=== PATIENT | female | born 1930 | race Caucasian/White ===

== ENCOUNTER 2017-07-28 10:04 | Inpatient (IN) | payer OTHER ==
[2017-07-28] MEDS: SOD CHLORIDE 0.9% 1,000 ML IV ×2 (10:35→15:33)
[2017-07-28 10:50] LABS: ADD MAN DIFF? NO
[2017-07-28 10:59] LABS: WHITE BLOOD COUNT 8.4 10^3/ul (4.8-10.8)
[2017-07-28 10:59] LABS: BASOPHILS % 0.4 % (0.0-2.0); EOSINOPHILS # 0.3 10^3/ul (0.0-0.5); EOSINOPHILS % 3.2 % (0.0-7.0); HEMATOCRIT 35.8 % (37.0-47.0); HEMOGLOBIN 11.1 g/dl (12.0-16.0); LYMPHOCYTES # 2.9 10^3/ul (0.8-2.9); LYMPHOCYTES % 34.7 % (15.0-51.0); MEAN CORPUSCULAR HEMOGLOBIN 29.3 pg (29.0-33.0); MEAN CORPUSCULAR VOLUME 94.5 fl (82.0-101.0); MEAN PLATELET VOLUME 11.4 fl (7.4-10.4); MONOCYTE # 0.7 10^3/ul (0.3-0.9); NEUTROPHIL # 4.5 10^3/ul (1.6-7.5); NEUTROPHILS % 53.3 % (39.0-77.0); PLATELET COUNT 285 10^3/UL (140-415); RED BLOOD COUNT 3.79 10^6/ul (4.20-5.40); RED CELL DISTRIBUTION WIDTH 14.7 % (11.5-14.5)
[2017-07-28 11:09] LABS: ALANINE AMINOTRANSFERASE 77 IU/L (13-69); ALBUMIN 4.4 g/dl (3.3-4.9); ALBUMIN/GLOBULIN RATIO 1.18; ALKALINE PHOSPHATASE 150 IU/L (42-121); ANION GAP 18 (8-16); ASPARTATE AMINO TRANSFERASE 84 IU/L (15-46); BILIRUBIN,INDIRECT 0.3 mg/dl (0-1.1); BILIRUBIN,TOTAL 0.3 mg/dl (0.2-1.3); BLOOD UREA NITROGEN 38 mg/dl (7-20); CALCIUM 9.3 mg/dl (8.4-10.2); CARBON DIOXIDE 25 mmol/L (21-31); CHLORIDE 101 mmol/L (97-110); CREATININE 1.21 mg/dl (0.44-1.00); GLUCOSE 172 mg/dl (70-220); LIPASE 107 U/L (23-300); POTASSIUM 4.1 mmol/L (3.5-5.1); SODIUM 140 mmol/L (135-144); TOTAL PROTEIN 8.1 g/dl (6.1-8.1)
[2017-07-28 11:11] LABS: INR 1.07; PT RATIO 1.1
[2017-07-28 11:20] LABS: TROPONIN-I 0.017 ng/ml (0.00-0.12)
[2017-07-28] MEDS ORDERED: DOCUSATE SODIUM 100 MG CAP PO (15:00)
[2017-07-28] MEDS ORDERED: morphine 2 MG INJ IV (15:00)
[2017-07-28] MEDS ORDERED: MAGNESIUM HYDROXIDE 30ML CUP PO (15:00)
[2017-07-28] MEDS ORDERED: ACETAMINOPHEN 650 MG SUPP PR (15:00)
[2017-07-28] MEDS ORDERED: HYDROCODONE/APAP (5/325) TAB PO (15:00)
[2017-07-28] MEDS ORDERED: BISACODYL 10 MG SUPP PR (15:00)
[2017-07-28] MEDS ORDERED: NACL 0.9% 3 ML SYG IV (15:00)
[2017-07-28 16:37] LABS: FREE T4 (FREE THYROXINE) 1.82 ng/dl (0.85-1.93)
[2017-07-28 17:09] LABS: FREE T3 4.87 pg/ml (2.77-5.27)
[2017-07-28] MEDS ORDERED: hydrALAzine 20 MG INJ (20:26)
[2017-07-28] MEDS: hydrALAzine 20 MG INJ IV (20:47)
[2017-07-28] MEDS ORDERED: AMLODIPINE 5 MG TAB PO (21:30)
[2017-07-28] MEDS ORDERED: HALOPERIDOL 5 MG INJ (23:04)
[2017-07-28] MEDS: ONDANSETRON 4 MG INJ IV (23:13)
[2017-07-28] MEDS: APIXABAN 5 MG TABLET PO (23:17)
[2017-07-28] MEDS: HALOPERIDOL 5 MG INJ IM (23:22)
[2017-07-29] MEDS: carBAMAZepine CHEW 100 MG CHEW PO ×3 (01:36→21:34)
[2017-07-29] MEDS: SOD CHLORIDE 0.9% 1,000 ML IV ×2 (04:18→16:54)
[2017-07-29] MEDS: PANTOPRAZOLE (EC) 40 MG TAB PO (06:52)
[2017-07-29] MEDS: ACETAMINOPHEN 325 MG TAB PO (06:52)
[2017-07-29] MEDS: LEVOTHYROXINE 50 MCG TAB PO (06:52)
[2017-07-29 07:22] LABS: ADD MAN DIFF? NO; HAAIG REFLEX REFLEX FILED
[2017-07-29 07:31] LABS: WHITE BLOOD COUNT 7.8 10^3/ul (4.8-10.8)
[2017-07-29 07:31] LABS: BASOPHILS % 0.4 % (0.0-2.0); EOSINOPHILS # 0.3 10^3/ul (0.0-0.5); EOSINOPHILS % 3.6 % (0.0-7.0); HEMOGLOBIN 10.5 g/dl (12.0-16.0); LYMPHOCYTES # 2.7 10^3/ul (0.8-2.9); MEAN CORPUSCULAR HGB CONC 31.8 g/dl (32.0-37.0); MEAN CORPUSCULAR VOLUME 94.3 fl (82.0-101.0); MEAN PLATELET VOLUME 11.1 fl (7.4-10.4); MONOCYTE # 0.7 10^3/ul (0.3-0.9); MONOCYTES % 8.8 % (0.0-11.0); NEUTROPHILS % 51.9 % (39.0-77.0); PLATELET COUNT 243 10^3/UL (140-415); RED CELL DISTRIBUTION WIDTH 14.6 % (11.5-14.5)
[2017-07-29 07:51] LABS: ALANINE AMINOTRANSFERASE 65 IU/L (13-69); ALBUMIN 3.4 g/dl (3.3-4.9); ALBUMIN/GLOBULIN RATIO 1.06; ALKALINE PHOSPHATASE 133 IU/L (42-121); ANION GAP 13 (8-16); ASPARTATE AMINO TRANSFERASE 69 IU/L (15-46); BILIRUBIN,INDIRECT 0.2 mg/dl (0-1.1); BILIRUBIN,TOTAL 0.2 mg/dl (0.2-1.3); BLOOD UREA NITROGEN 25 mg/dl (7-20); CALCIUM 8.7 mg/dl (8.4-10.2); CARBON DIOXIDE 24 mmol/L (21-31); CHLORIDE 106 mmol/L (97-110); CHOL/HDL RATIO 4.3 RATIO; CHOLESTEROL 151 mg/dl (100-200); CREATININE 1.19 mg/dl (0.44-1.00); GLUCOSE 116 mg/dl (70-220); HDL CHOLESTEROL 35 mg/dl (33-92); LDL CHOLESTEROL,CALCULATED 74 mg/dl; MAGNESIUM 2.3 mg/dl (1.7-2.5); PHOSPHORUS 3.9 mg/dl (2.5-4.9); POTASSIUM 4.4 mmol/L (3.5-5.1); SODIUM 139 mmol/L (135-144); TOTAL PROTEIN 6.6 g/dl (6.1-8.1); TRIGLYCERIDES 210 mg/dl (0-149)
[2017-07-29 07:55] LABS: HEMOGLOBIN A1C 6.1 % (0-5.9)
[2017-07-29 08:22] LABS: FREE THYROXINE INDEX (Calc) 3.45 ug/ml (0.65-3.89); T3 UPTAKE 39.7 % (23.5-40.5); T4 (THYROXINE) 8.7 ug/dl (5.5-11.0)
[2017-07-29 08:36] LABS: HEPATITIS B SURFACE ANTIGEN NEGATIVE (NEGATIVE)
[2017-07-29] MEDS: PAROXETINE 20 MG TAB PO (08:49)
[2017-07-29] MEDS: APIXABAN 5 MG TABLET PO ×2 (08:50→21:34)
[2017-07-29 08:54] LABS: HEPATITIS B CORE ANTIBODY NEGATIVE (NEGATIVE); HEPATITIS C VIRAL ANTIBODY NEGATIVE (NEGATIVE)
[2017-07-29] MEDS: hydrALAzine 20 MG INJ IV (11:48)
[2017-07-29 13:47] LABS: CREATINE KINASE 319 IU/L (23-200)
[2017-07-29 14:00] LABS: CK INDEX 0.6; CK-MB 1.91 ng/ml (0.0-2.4); TROPONIN-I 0.057 ng/ml (0.00-0.12)
[2017-07-30] MEDS: SOD CHLORIDE 0.9% 1,000 ML IV ×2 (05:50→21:14)
[2017-07-30] MEDS: PANTOPRAZOLE (EC) 40 MG TAB PO (06:49)
[2017-07-30] MEDS: LEVOTHYROXINE 50 MCG TAB PO (06:49)
[2017-07-30 08:16] LABS: ADD MAN DIFF? NO
[2017-07-30 08:18] LABS: WHITE BLOOD COUNT 7.2 10^3/ul (4.8-10.8)
[2017-07-30 08:18] LABS: BASOPHILS % 0.3 % (0.0-2.0); EOSINOPHILS # 0.3 10^3/ul (0.0-0.5); EOSINOPHILS % 4.7 % (0.0-7.0); HEMATOCRIT 30.8 % (37.0-47.0); HEMOGLOBIN 9.8 g/dl (12.0-16.0); LYMPHOCYTES # 2.5 10^3/ul (0.8-2.9); LYMPHOCYTES % 34.9 % (15.0-51.0); MEAN CORPUSCULAR HGB CONC 31.8 g/dl (32.0-37.0); MEAN CORPUSCULAR VOLUME 94.2 fl (82.0-101.0); MEAN PLATELET VOLUME 11.4 fl (7.4-10.4); MONOCYTE # 0.7 10^3/ul (0.3-0.9); MONOCYTES % 9.4 % (0.0-11.0); NEUTROPHIL # 3.6 10^3/ul (1.6-7.5); NEUTROPHILS % 50.4 % (39.0-77.0); PLATELET COUNT 217 10^3/UL (140-415); RED BLOOD COUNT 3.27 10^6/ul (4.20-5.40); RED CELL DISTRIBUTION WIDTH 14.7 % (11.5-14.5)
[2017-07-30] MEDS: carBAMAZepine CHEW 100 MG CHEW PO ×2 (08:29→21:11)
[2017-07-30] MEDS: APIXABAN 5 MG TABLET PO ×2 (08:29→21:12)
[2017-07-30] MEDS: hydrALAzine 20 MG INJ IV ×2 (08:30→21:12)
[2017-07-30 08:42] LABS: ALANINE AMINOTRANSFERASE 61 IU/L (13-69); ALBUMIN 3.5 g/dl (3.3-4.9); ALBUMIN/GLOBULIN RATIO 1.09; ALKALINE PHOSPHATASE 130 IU/L (42-121); ANION GAP 14 (8-16); ASPARTATE AMINO TRANSFERASE 51 IU/L (15-46); BILIRUBIN,INDIRECT 0.2 mg/dl (0-1.1); BILIRUBIN,TOTAL 0.2 mg/dl (0.2-1.3); BLOOD UREA NITROGEN 22 mg/dl (7-20); CALCIUM 8.6 mg/dl (8.4-10.2); CARBON DIOXIDE 20 mmol/L (21-31); CHLORIDE 109 mmol/L (97-110); CREATININE 1.09 mg/dl (0.44-1.00); GLUCOSE 110 mg/dl (70-220); MAGNESIUM 2.3 mg/dl (1.7-2.5); POTASSIUM 4.3 mmol/L (3.5-5.1); SODIUM 139 mmol/L (135-144); TOTAL PROTEIN 6.7 g/dl (6.1-8.1)
[2017-07-30] MEDS: PAROXETINE 20 MG TAB PO (09:49)
[2017-07-31] MEDS: LEVOTHYROXINE 50 MCG TAB PO (05:48)
[2017-07-31 06:39] LABS: ADD MAN DIFF? NO
[2017-07-31 06:53] LABS: WHITE BLOOD COUNT 6.3 10^3/ul (4.8-10.8)
[2017-07-31 06:53] LABS: BASOPHILS % 0.3 % (0.0-2.0); EOSINOPHILS # 0.2 10^3/ul (0.0-0.5); EOSINOPHILS % 3.8 % (0.0-7.0); HEMATOCRIT 30.3 % (37.0-47.0); HEMOGLOBIN 9.4 g/dl (12.0-16.0); LYMPHOCYTES # 1.9 10^3/ul (0.8-2.9); LYMPHOCYTES % 29.5 % (15.0-51.0); MEAN CORPUSCULAR HEMOGLOBIN 29.4 pg (29.0-33.0); MEAN CORPUSCULAR VOLUME 94.7 fl (82.0-101.0); MEAN PLATELET VOLUME 12.5 fl (7.4-10.4); MONOCYTE # 0.5 10^3/ul (0.3-0.9); MONOCYTES % 8.3 % (0.0-11.0); NEUTROPHIL # 3.7 10^3/ul (1.6-7.5); NEUTROPHILS % 57.9 % (39.0-77.0); RED CELL DISTRIBUTION WIDTH 14.8 % (11.5-14.5)
[2017-07-31 07:07] LABS: PLATELET COUNT 142 10^3/UL (140-415); POSITIVE DIFF @See below
[2017-07-31 07:31] LABS: ALANINE AMINOTRANSFERASE 51 IU/L (13-69); ALBUMIN 3.4 g/dl (3.3-4.9); ALBUMIN/GLOBULIN RATIO 1.06; ALKALINE PHOSPHATASE 129 IU/L (42-121); ANION GAP 14 (8-16); ASPARTATE AMINO TRANSFERASE 41 IU/L (15-46); BILIRUBIN,INDIRECT 0.2 mg/dl (0-1.1); BILIRUBIN,TOTAL 0.2 mg/dl (0.2-1.3); BLOOD UREA NITROGEN 19 mg/dl (7-20); CALCIUM 8.6 mg/dl (8.4-10.2); CARBON DIOXIDE 19 mmol/L (21-31); CHLORIDE 110 mmol/L (97-110); CREATININE 0.92 mg/dl (0.44-1.00); GLUCOSE 109 mg/dl (70-220); POTASSIUM 4.4 mmol/L (3.5-5.1); SODIUM 139 mmol/L (135-144); TOTAL PROTEIN 6.6 g/dl (6.1-8.1)
[2017-07-31] MEDS: PANTOPRAZOLE (EC) 40 MG TAB PO (08:32)
[2017-07-31] MEDS: APIXABAN 5 MG TABLET PO ×2 (08:32→20:00)
[2017-07-31] MEDS: carBAMAZepine CHEW 100 MG CHEW PO ×2 (08:32→20:01)
[2017-07-31] MEDS: SOD CHLORIDE 0.9% 1,000 ML IV ×2 (10:02→23:43)
[2017-07-31] MEDS: PAROXETINE 20 MG TAB PO (10:02)
[2017-08-01] MEDS: LEVOTHYROXINE 50 MCG TAB PO ×2 (06:16→09:37)
[2017-08-01 09:27] LABS: ADD MAN DIFF? NO
[2017-08-01 09:34] LABS: BASOPHILS % 0.6 % (0.0-2.0); EOSINOPHILS # 0.3 10^3/ul (0.0-0.5); EOSINOPHILS % 4.5 % (0.0-7.0); HEMATOCRIT 28.5 % (37.0-47.0); HEMOGLOBIN 9.1 g/dl (12.0-16.0); LYMPHOCYTES # 2.3 10^3/ul (0.8-2.9); MEAN CORPUSCULAR HEMOGLOBIN 30.1 pg (29.0-33.0); MEAN CORPUSCULAR HGB CONC 31.9 g/dl (32.0-37.0); MEAN CORPUSCULAR VOLUME 94.4 fl (82.0-101.0); MEAN PLATELET VOLUME 11.5 fl (7.4-10.4); MONOCYTE # 0.6 10^3/ul (0.3-0.9); MONOCYTES % 9.3 % (0.0-11.0); NEUTROPHIL # 3.1 10^3/ul (1.6-7.5); NEUTROPHILS % 49.3 % (39.0-77.0); PLATELET COUNT 195 10^3/UL (140-415); RED BLOOD COUNT 3.02 10^6/ul (4.20-5.40); RED CELL DISTRIBUTION WIDTH 14.6 % (11.5-14.5)
[2017-08-01 09:34] LABS: WHITE BLOOD COUNT 6.3 10^3/ul (4.8-10.8)
[2017-08-01] MEDS: PAROXETINE 20 MG TAB PO (09:37)
[2017-08-01] MEDS: PANTOPRAZOLE (EC) 40 MG TAB PO (09:37)
[2017-08-01] MEDS: APIXABAN 5 MG TABLET PO ×2 (09:38→20:20)
[2017-08-01 10:08] LABS: ANION GAP 12 (8-16); BLOOD UREA NITROGEN 14 mg/dl (7-20); CALCIUM 8.5 mg/dl (8.4-10.2); CARBON DIOXIDE 21 mmol/L (21-31); CHLORIDE 111 mmol/L (97-110); CREATININE 0.86 mg/dl (0.44-1.00); GLUCOSE 106 mg/dl (70-220); POTASSIUM 4.4 mmol/L (3.5-5.1); SODIUM 140 mmol/L (135-144)
[2017-08-01 11:44] LABS: IRON 58 ug/dl (35-150)
[2017-08-01 11:53] LABS: % IRON SATURATION 21 % SAT (22-52); TOTAL IRON BINDING CAPACITY 270 ug/dl (241-421)
[2017-08-01] MEDS: SOD CHLORIDE 0.9% 1,000 ML IV (12:32)
[2017-08-01] MEDS: carBAMAZepine CHEW 100 MG CHEW PO (20:20)
[2017-08-01] MEDS: hydrALAzine 20 MG INJ IV (20:36)
[2017-08-01] MEDS: ACETAMINOPHEN 325 MG TAB PO (21:52)
[2017-08-02] MEDS: SOD CHLORIDE 0.9% 1,000 ML IV ×2 (02:24→15:37)
[2017-08-02] MEDS: PANTOPRAZOLE (EC) 40 MG TAB PO (05:29)
[2017-08-02 08:27] LABS: ADD MAN DIFF? NO
[2017-08-02 08:28] LABS: WHITE BLOOD COUNT 6.3 10^3/ul (4.8-10.8)
[2017-08-02 08:28] LABS: BASOPHIL # 0.1 10^3/ul (0.0-0.1); BASOPHILS % 0.8 % (0.0-2.0); EOSINOPHILS # 0.3 10^3/ul (0.0-0.5); EOSINOPHILS % 4.3 % (0.0-7.0); HEMATOCRIT 28.7 % (37.0-47.0); HEMOGLOBIN 9.2 g/dl (12.0-16.0); LYMPHOCYTES # 2.1 10^3/ul (0.8-2.9); LYMPHOCYTES % 32.8 % (15.0-51.0); MEAN CORPUSCULAR HEMOGLOBIN 30.1 pg (29.0-33.0); MEAN CORPUSCULAR HGB CONC 32.1 g/dl (32.0-37.0); MEAN CORPUSCULAR VOLUME 93.8 fl (82.0-101.0); MEAN PLATELET VOLUME 11.6 fl (7.4-10.4); MONOCYTE # 0.6 10^3/ul (0.3-0.9); MONOCYTES % 9.6 % (0.0-11.0); NEUTROPHIL # 3.3 10^3/ul (1.6-7.5); NEUTROPHILS % 52.2 % (39.0-77.0); PLATELET COUNT 194 10^3/UL (140-415); RED BLOOD COUNT 3.06 10^6/ul (4.20-5.40); RED CELL DISTRIBUTION WIDTH 14.6 % (11.5-14.5)
[2017-08-02] MEDS: APIXABAN 5 MG TABLET PO (08:46)
[2017-08-02] MEDS: PAROXETINE 20 MG TAB PO (08:48)
[2017-08-02] MEDS: HYDROCODONE/APAP (5/325) TAB PO (11:08)
[2017-08-02] MEDS ORDERED: carBAMAZepine CHEW 100 MG CHEW PO ×2 (12:30→21:00)
[2017-08-02] MEDS: carBAMAZepine CHEW 100 MG CHEW PO ×2 (13:22→20:58)
[2017-08-03] MEDS: hydrALAzine 20 MG INJ IV ×4 (00:34→20:36)
[2017-08-03] MEDS: PANTOPRAZOLE (EC) 40 MG TAB PO (05:11)
[2017-08-03] MEDS: SOD CHLORIDE 0.9% 1,000 ML IV ×2 (05:11→17:50)
[2017-08-03] MEDS: LEVOTHYROXINE 50 MCG TAB PO (05:16)
[2017-08-03 07:31] LABS: ADD MAN DIFF? NO
[2017-08-03 07:33] LABS: WHITE BLOOD COUNT 5.7 10^3/ul (4.8-10.8)
[2017-08-03 07:33] LABS: BASOPHILS % 0.5 % (0.0-2.0); EOSINOPHILS # 0.1 10^3/ul (0.0-0.5); EOSINOPHILS % 2.1 % (0.0-7.0); HEMATOCRIT 28.4 % (37.0-47.0); HEMOGLOBIN 9.2 g/dl (12.0-16.0); LYMPHOCYTES # 1.3 10^3/ul (0.8-2.9); MEAN CORPUSCULAR HEMOGLOBIN 30.4 pg (29.0-33.0); MEAN CORPUSCULAR HGB CONC 32.4 g/dl (32.0-37.0); MEAN CORPUSCULAR VOLUME 93.7 fl (82.0-101.0); MEAN PLATELET VOLUME 11.6 fl (7.4-10.4); MONOCYTE # 0.5 10^3/ul (0.3-0.9); MONOCYTES % 8.4 % (0.0-11.0); NEUTROPHIL # 3.8 10^3/ul (1.6-7.5); NEUTROPHILS % 66.8 % (39.0-77.0); PLATELET COUNT 200 10^3/UL (140-415); RED BLOOD COUNT 3.03 10^6/ul (4.20-5.40); RED CELL DISTRIBUTION WIDTH 14.6 % (11.5-14.5)
[2017-08-03] MEDS: carBAMAZepine CHEW 100 MG CHEW PO ×2 (08:22→20:36)
[2017-08-03] MEDS: PAROXETINE 20 MG TAB PO (08:25)
[2017-08-03] MEDS ORDERED: BACITRACIN 50000 UNITS INJ (09:19)
[2017-08-03] MEDS ORDERED: LIDOCAINE 1%/EPI 30 ML INJ (10:45)
[2017-08-03] MEDS ORDERED: IODIXANOL LOCM 50 ML BTL (10:45)
[2017-08-03] MEDS ORDERED: MIDAZOLAM 1 MG/ML 2 ML INJ (10:49)
[2017-08-03] MEDS ORDERED: FENTAnyl 50 MCG/ML VIAL (10:50)
[2017-08-03] MEDS ORDERED: PROPOFOL 20 ML ×2 (10:50→10:51)
[2017-08-03] MEDS: POLYMYXIN/BACITRACIN 1L IRRIG IRR (11:00)
[2017-08-03] MEDS ORDERED: morphine 2 MG INJ IV (12:30)
[2017-08-03] MEDS ORDERED: ONDANSETRON 4 MG INJ IV (12:30)
[2017-08-03] MEDS ORDERED: HYDROmorphONE (0.2 MG/ML) 10ML SYG IV ×2 (12:30)
[2017-08-03] MEDS ORDERED: LABETALOL HCL 20MG INJ IV (12:30)
[2017-08-03] MEDS ORDERED: hydrALAzine 20 MG INJ IV (12:30)
[2017-08-03] MEDS ORDERED: ACETAMINOPHEN 325 MG TAB PO (12:30)
[2017-08-03] MEDS ORDERED: CEFAZOLIN 1 GM INJ IVPB ×2 (14:00)
[2017-08-03] MEDS: CEFAZOLIN 1 GM/50 ML (PMX) 50 ML IVPB ×2 (14:22→20:37)
[2017-08-03] MEDS: ONDANSETRON 4 MG INJ IV (21:49)
[2017-08-04] MEDS: SOD CHLORIDE 0.9% 1,000 ML IV (03:16)
[2017-08-04] MEDS: ALBUTEROL/IPRATROPIUM (NEB) 3 ML AMP HHN (03:19)
[2017-08-04] MEDS: LEVOTHYROXINE 50 MCG TAB PO (05:45)
[2017-08-04] MEDS: CEFAZOLIN 1 GM/50 ML (PMX) 50 ML IVPB (05:45)
[2017-08-04] MEDS: PANTOPRAZOLE (EC) 40 MG TAB PO (05:46)
[2017-08-04 08:38] LABS: ADD MAN DIFF? NO
[2017-08-04 08:50] LABS: WHITE BLOOD COUNT 6.3 10^3/ul (4.8-10.8)
[2017-08-04 08:50] LABS: BASOPHILS % 0.5 % (0.0-2.0); EOSINOPHILS # 0.1 10^3/ul (0.0-0.5); EOSINOPHILS % 1.9 % (0.0-7.0); HEMATOCRIT 26.6 % (37.0-47.0); HEMOGLOBIN 8.5 g/dl (12.0-16.0); LYMPHOCYTES # 1.8 10^3/ul (0.8-2.9); LYMPHOCYTES % 28.2 % (15.0-51.0); MEAN CORPUSCULAR HEMOGLOBIN 30.1 pg (29.0-33.0); MEAN CORPUSCULAR VOLUME 94.3 fl (82.0-101.0); MEAN PLATELET VOLUME 11.6 fl (7.4-10.4); MONOCYTE # 0.7 10^3/ul (0.3-0.9); MONOCYTES % 10.4 % (0.0-11.0); NEUTROPHIL # 3.7 10^3/ul (1.6-7.5); NEUTROPHILS % 58.8 % (39.0-77.0); PLATELET COUNT 189 10^3/UL (140-415); RED BLOOD COUNT 2.82 10^6/ul (4.20-5.40); RED CELL DISTRIBUTION WIDTH 14.9 % (11.5-14.5)
[2017-08-04] MEDS: PAROXETINE 20 MG TAB PO (09:04)
[2017-08-04] MEDS: carBAMAZepine CHEW 100 MG CHEW PO (09:04)
[2017-08-04] MEDS: FUROSEMIDE 20 MG INJ IV (13:00)
== END 2017-08-04 20:00 | disposition home health service (06) | DRG 243 ==
LOC: E/R 10:04 → MS4 12:35
PROC: 0JH604Z Insertion of Pacemaker, Single Chamber into Chest Subcutaneous Tissue and Fascia, Open Approach (ICD-10-PCS; principal; 2017-08-03 10:56)
PROC: 02HK3JZ Insertion of Pacemaker Lead into Right Ventricle, Percutaneous Approach (ICD-10-PCS; 2017-08-03 10:56)
DX: I49.5 Sick sinus syndrome (principal); N17.9 Acute kidney failure, unspecified; R00.1 Bradycardia, unspecified; E86.0 Dehydration; D64.9 Anemia, unspecified; I10 Essential (primary) hypertension; R73.03 Prediabetes; F32.9 Major depressive disorder, single episode, unspecified; R74.0 Nonspecific elevation of levels of transaminase and lactic acid dehydrogenase [LDH]; E03.9 Hypothyroidism, unspecified; E78.5 Hyperlipidemia, unspecified; E78.1 Pure hyperglyceridemia
CPT/HCPCS: 36415; 71045; 74176; 80048; 80053; 80061; 82550; 82553; 83036; 83540; 83690; 83735; 84100; 84436; 84439; 84443; 84479; 84481; 84484; 85025; 85610; 86704; 86709; 86803; 87081; 87340; 93005; 93306; 93880; 94664; 96361; 96374; 99285-25; J1940

== ENCOUNTER 2017-10-03 12:12 | Observation (INO) | payer OTHER ==
[2017-10-03 14:22] LABS: ADD MAN DIFF? NO
[2017-10-03 14:24] LABS: WHITE BLOOD COUNT 7.6 10^3/ul (4.8-10.8)
[2017-10-03 14:24] LABS: BASOPHIL # 0.1 10^3/ul (0.0-0.1); BASOPHILS % 0.7 % (0.0-2.0); EOSINOPHILS # 0.2 10^3/ul (0.0-0.5); HEMATOCRIT 29.8 % (37.0-47.0); HEMOGLOBIN 9.7 g/dl (12.0-16.0); LYMPHOCYTES # 2.3 10^3/ul (0.8-2.9); LYMPHOCYTES % 29.5 % (15.0-51.0); MEAN CORPUSCULAR HEMOGLOBIN 27.3 pg (29.0-33.0); MEAN CORPUSCULAR HGB CONC 32.6 g/dl (32.0-37.0); MEAN CORPUSCULAR VOLUME 83.9 fl (82.0-101.0); MEAN PLATELET VOLUME 10.1 fl (7.4-10.4); MONOCYTE # 0.8 10^3/ul (0.3-0.9); MONOCYTES % 9.8 % (0.0-11.0); NEUTROPHIL # 4.3 10^3/ul (1.6-7.5); NEUTROPHILS % 56.7 % (39.0-77.0); PLATELET COUNT 293 10^3/UL (140-415); RED BLOOD COUNT 3.55 10^6/ul (4.20-5.40); RED CELL DISTRIBUTION WIDTH 14.6 % (11.5-14.5)
[2017-10-03 14:48] LABS: ANION GAP 17 (8-16); BLOOD UREA NITROGEN 19 mg/dl (7-20); CALCIUM 8.9 mg/dl (8.4-10.2); CARBON DIOXIDE 23 mmol/L (21-31); CHLORIDE 103 mmol/L (97-110); CREATININE 0.95 mg/dl (0.44-1.00); GLUCOSE 109 mg/dl (70-220); POTASSIUM 4.3 mmol/L (3.5-5.1); SODIUM 139 mmol/L (135-144)
[2017-10-03 14:50] LABS: INR 1.27; PROTIME 16.1 Sec (11.9-14.9); PT RATIO 1.3
[2017-10-03 14:51] LABS: PARTIAL THROMBOPLASTIN TIME 32.4 Sec (25.0-35.0)
[2017-10-03 15:00] LABS: B-TYPE NATRIURETIC PEPTIDE 3230 PG/ML (0-450)
[2017-10-03 15:21] LABS: TROPONIN-I < 0.012 ng/ml (0.00-0.12)
[2017-10-03] MEDS ORDERED: KETOROLAC 15 MG INJ IV (15:34)
[2017-10-03] MEDS: FUROSEMIDE 20 MG INJ IV (15:44)
[2017-10-03] MEDS ORDERED: ACETAMINOPHEN 325 MG TAB PO (18:00)
[2017-10-03] MEDS ORDERED: morphine 2 MG INJ IV (18:00)
[2017-10-03] MEDS ORDERED: ONDANSETRON 4 MG INJ IV (18:00)
[2017-10-03] MEDS ORDERED: NACL 0.9% 3 ML SYG IV (18:00)
[2017-10-03] MEDS ORDERED: HYDROCODONE/APAP (5/325) TAB PO (18:00)
[2017-10-03] MEDS: CEFTRIAXONE 1 GM/50 ML (PMX) 50 ML IVPB (18:08)
[2017-10-03] MEDS: AZITHROMYCIN 500MG/NS (PMX) 250 ML IVPB (18:56)
[2017-10-03] MEDS: carBAMAZepine CHEW 100 MG CHEW PO (21:13)
[2017-10-03] MEDS: APIXABAN 5 MG TABLET PO (21:13)
[2017-10-03] MEDS: ZOLPIDEM 5 MG TAB PO (22:28)
[2017-10-03] MEDS: DOCUSATE SODIUM 100 MG CAP PO (22:28)
[2017-10-04] MEDS: LEVOTHYROXINE 50 MCG TAB PO (06:14)
[2017-10-04] MEDS ORDERED: MAGNESIUM HYDROXIDE 30ML CUP PO (06:30)
[2017-10-04] MEDS: MAGNESIUM HYDROXIDE 30ML CUP PO (06:47)
[2017-10-04] MEDS: PANTOPRAZOLE (EC) 40 MG TAB PO (08:35)
[2017-10-04] MEDS: PAROXETINE 20 MG TAB PO ×2 (08:36→08:40)
[2017-10-04] MEDS: APIXABAN 5 MG TABLET PO (08:36)
[2017-10-04] MEDS: carBAMAZepine CHEW 100 MG CHEW PO (08:37)
[2017-10-04] MEDS: FUROSEMIDE 40 MG INJ IV (08:37)
[2017-10-04 08:41] LABS: ADD MAN DIFF? NO
[2017-10-04 09:09] LABS: ANION GAP 15 (8-16); BLOOD UREA NITROGEN 21 mg/dl (7-20); CALCIUM 8.7 mg/dl (8.4-10.2); CARBON DIOXIDE 26 mmol/L (21-31); CHLORIDE 102 mmol/L (97-110); GLUCOSE 127 mg/dl (70-220); MAGNESIUM 2.2 mg/dl (1.7-2.5); PHOSPHORUS 3.5 mg/dl (2.5-4.9); SODIUM 139 mmol/L (135-144)
[2017-10-04 09:13] LABS: B-TYPE NATRIURETIC PEPTIDE 4010 PG/ML (0-450)
[2017-10-04 09:41] LABS: BASOPHILS % 0.5 % (0.0-2.0); EOSINOPHILS # 0.2 10^3/ul (0.0-0.5); EOSINOPHILS % 2.5 % (0.0-7.0); HEMATOCRIT 28.3 % (37.0-47.0); HEMOGLOBIN 9.1 g/dl (12.0-16.0); LYMPHOCYTES # 1.5 10^3/ul (0.8-2.9); LYMPHOCYTES % 19.4 % (15.0-51.0); MEAN CORPUSCULAR HEMOGLOBIN 26.9 pg (29.0-33.0); MEAN CORPUSCULAR HGB CONC 32.2 g/dl (32.0-37.0); MEAN CORPUSCULAR VOLUME 83.7 fl (82.0-101.0); MEAN PLATELET VOLUME 10.8 fl (7.4-10.4); MONOCYTE # 0.6 10^3/ul (0.3-0.9); MONOCYTES % 7.6 % (0.0-11.0); NEUTROPHIL # 5.5 10^3/ul (1.6-7.5); NEUTROPHILS % 69.7 % (39.0-77.0); PLATELET COUNT 287 10^3/UL (140-415); RED BLOOD COUNT 3.38 10^6/ul (4.20-5.40); RED CELL DISTRIBUTION WIDTH 14.8 % (11.5-14.5)
[2017-10-04 09:41] LABS: WHITE BLOOD COUNT 7.9 10^3/ul (4.8-10.8)
[2017-10-04] MEDS ORDERED: PAROXETINE 20 MG TAB PO (21:00)
== END 2017-10-04 12:37 | disposition home or self-care (01) ==
LOC: E/R 12:12 → TEL 15:56
DX: R06.03 Acute respiratory distress (principal); E03.9 Hypothyroidism, unspecified; F32.9 Major depressive disorder, single episode, unspecified; Z95.0 Presence of cardiac pacemaker; I10 Essential (primary) hypertension; R79.9 Abnormal finding of blood chemistry, unspecified
CPT/HCPCS: 36415; 71045; 80048; 83735; 83880; 84100; 84484; 85025; 85610; 85730; 93005; 93971; 96374; 99285-25; G0378

== ENCOUNTER 2018-09-06 04:31 | Inpatient (IN) | payer OTHER ==
[2018-09-06] MEDS: IPRATROPIUM (NEB) 0.5 MG/2.5 ML AMP INH (05:23)
[2018-09-06] MEDS: ALBUTEROL 0.083% (NEB) 2.5 MG/3 ML AMP HHN (05:23)
[2018-09-06 05:26] LABS: ADD MAN DIFF? NO
[2018-09-06 05:32] LABS: BASOPHIL # 0.1 10^3/ul (0.0-0.1); BASOPHILS % 0.6 % (0.0-2.0); EOSINOPHILS # 0.3 10^3/ul (0.0-0.5); EOSINOPHILS % 3.5 % (0.0-7.0); HEMATOCRIT 33.5 % (37.0-47.0); HEMOGLOBIN 10.6 g/dl (12.0-16.0); LYMPHOCYTES # 1.9 10^3/ul (0.8-2.9); MEAN CORPUSCULAR HEMOGLOBIN 27.2 pg (29.0-33.0); MEAN CORPUSCULAR HGB CONC 31.6 g/dl (32.0-37.0); MEAN CORPUSCULAR VOLUME 85.9 fl (82.0-101.0); MEAN PLATELET VOLUME 10.6 fl (7.4-10.4); MONOCYTE # 0.6 10^3/ul (0.3-0.9); MONOCYTES % 7.2 % (0.0-11.0); NEUTROPHIL # 5.8 10^3/ul (1.6-7.5); NEUTROPHILS % 66.1 % (39.0-77.0); PLATELET COUNT 241 10^3/UL (140-415); RED CELL DISTRIBUTION WIDTH 16.7 % (11.5-14.5)
[2018-09-06 05:32] LABS: WHITE BLOOD COUNT 8.7 10^3/ul (4.8-10.8)
[2018-09-06] MEDS: ACETAMINOPHEN 325 MG TAB PO ×2 (05:44→22:24)
[2018-09-06 05:59] LABS: B-TYPE NATRIURETIC PEPTIDE 3450 PG/ML (0-450)
[2018-09-06] MEDS: CEFTRIAXONE 1 GM/50 ML (PMX) 50 ML IVPB (06:36)
[2018-09-06 06:51] LABS: ALANINE AMINOTRANSFERASE 20 IU/L (13-69); ALBUMIN/GLOBULIN RATIO 0.95; ALKALINE PHOSPHATASE 146 IU/L (42-121); ANION GAP 11 (5-13); ASPARTATE AMINO TRANSFERASE 38 IU/L (15-46); BILIRUBIN,INDIRECT 0.4 mg/dl (0-1.1); BILIRUBIN,TOTAL 0.4 mg/dl (0.2-1.3); BLOOD UREA NITROGEN 18 mg/dl (7-20); CALCIUM 9.5 mg/dl (8.4-10.2); CARBON DIOXIDE 23 mmol/L (21-31); CHLORIDE 104 mmol/L (97-110); CREATININE 0.93 mg/dl (0.44-1.00); GLUCOSE 128 mg/dl (70-220); POTASSIUM 5.1 mmol/L (3.5-5.1); SODIUM 138 mmol/L (135-144); TOTAL PROTEIN 8.2 g/dl (6.1-8.1)
[2018-09-06 07:03] LABS: TROPONIN-I < 0.012 ng/ml (0.000-0.120)
[2018-09-06] MEDS: AZITHROMYCIN 500MG/NS (PMX) 250 ML IVPB (07:06)
[2018-09-06] MEDS ORDERED: HYDROCODONE/APAP (5/325) TAB PO (13:00)
[2018-09-06] MEDS ORDERED: DOCUSATE SODIUM 100 MG CAP PO (13:00)
[2018-09-06] MEDS ORDERED: NACL 0.9% 3 ML SYG IV (13:00)
[2018-09-06] MEDS: FUROSEMIDE 40 MG INJ IV ×2 (13:10→22:26)
[2018-09-06 13:15] LABS: CREATINE KINASE 51 IU/L (23-200)
[2018-09-06 13:28] LABS: CK INDEX 1.5; CK-MB 0.77 ng/ml (0.0-2.4); TROPONIN-I < 0.012 ng/ml (0.000-0.120)
[2018-09-06] MEDS ORDERED: ALBUTEROL/IPRATROPIUM (NEB) 3 ML AMP HHN (15:00)
[2018-09-06] MEDS: GUAIFENESIN/DM 5ML CUP PO ×2 (15:35→22:23)
[2018-09-06 19:21] LABS: CREATINE KINASE 64 IU/L (23-200)
[2018-09-06 19:33] LABS: CK INDEX 1.1; CK-MB 0.68 ng/ml (0.0-2.4); TROPONIN-I < 0.012 ng/ml (0.000-0.120)
[2018-09-06] MEDS: APIXABAN 5 MG TABLET PO (22:24)
[2018-09-06] MEDS: ONDANSETRON 4 MG INJ IV (22:26)
[2018-09-06] MEDS: carBAMAZepine CHEW 100 MG CHEW PO (22:49)
[2018-09-07 05:40] LABS: ADD MAN DIFF? NO
[2018-09-07 05:45] LABS: BASOPHIL # 0.1 10^3/ul (0.0-0.1); BASOPHILS % 0.8 % (0.0-2.0); EOSINOPHILS # 0.4 10^3/ul (0.0-0.5); EOSINOPHILS % 5.1 % (0.0-7.0); HEMATOCRIT 32.9 % (37.0-47.0); HEMOGLOBIN 10.4 g/dl (12.0-16.0); LYMPHOCYTES # 3.3 10^3/ul (0.8-2.9); LYMPHOCYTES % 45.3 % (15.0-51.0); MEAN CORPUSCULAR HEMOGLOBIN 27.5 pg (29.0-33.0); MEAN CORPUSCULAR HGB CONC 31.6 g/dl (32.0-37.0); MEAN PLATELET VOLUME 10.6 fl (7.4-10.4); MONOCYTE # 0.7 10^3/ul (0.3-0.9); MONOCYTES % 9.1 % (0.0-11.0); NEUTROPHIL # 2.9 10^3/ul (1.6-7.5); NEUTROPHILS % 39.4 % (39.0-77.0); PLATELET COUNT 213 10^3/UL (140-415); RED BLOOD COUNT 3.78 10^6/ul (4.20-5.40); RED CELL DISTRIBUTION WIDTH 17.2 % (11.5-14.5)
[2018-09-07 05:45] LABS: WHITE BLOOD COUNT 7.3 10^3/ul (4.8-10.8)
[2018-09-07 06:00] LABS: HEMOGLOBIN A1C 6.1 % (0-5.9)
[2018-09-07 06:11] LABS: ALANINE AMINOTRANSFERASE 16 IU/L (13-69); ALBUMIN 3.6 g/dl (3.3-4.9); ALBUMIN/GLOBULIN RATIO 0.92; ALKALINE PHOSPHATASE 129 IU/L (42-121); ANION GAP 9 (5-13); ASPARTATE AMINO TRANSFERASE 28 IU/L (15-46); BILIRUBIN,INDIRECT 0.2 mg/dl (0-1.1); BILIRUBIN,TOTAL 0.2 mg/dl (0.2-1.3); BLOOD UREA NITROGEN 18 mg/dl (7-20); CALCIUM 9.2 mg/dl (8.4-10.2); CARBON DIOXIDE 28 mmol/L (21-31); CHLORIDE 100 mmol/L (97-110); CHOL/HDL RATIO 3.7 RATIO; CHOLESTEROL 128 mg/dl (100-200); CREATININE 1.22 mg/dl (0.44-1.00); GLUCOSE 103 mg/dl (70-220); HDL CHOLESTEROL 34 mg/dl (33-92); LDL CHOLESTEROL,CALCULATED 66 mg/dl; PHOSPHORUS 4.5 mg/dl (2.5-4.9); POTASSIUM 3.8 mmol/L (3.5-5.1); SODIUM 137 mmol/L (135-144); TOTAL PROTEIN 7.5 g/dl (6.1-8.1); TRIGLYCERIDES 141 mg/dl (0-149)
[2018-09-07] MEDS: LEVOTHYROXINE 50 MCG TAB PO (06:18)
[2018-09-07] MEDS: PANTOPRAZOLE (EC) 40 MG TAB PO (06:18)
[2018-09-07] MEDS: CEFTRIAXONE 1 GM/50 ML (PMX) 50 ML IVPB (06:19)
[2018-09-07 08:20] LABS: CREATINE KINASE 69 IU/L (23-200)
[2018-09-07] MEDS: AZITHROMYCIN 500MG/NS (PMX) 250 ML IVPB (08:32)
[2018-09-07 08:33] LABS: CK-MB 0.67 ng/ml (0.0-2.4); TROPONIN-I 0.022 ng/ml (0.000-0.120)
[2018-09-07] MEDS: PAROXETINE 20 MG TAB PO (08:36)
[2018-09-07] MEDS: APIXABAN 5 MG TABLET PO ×2 (08:37→22:10)
[2018-09-07] MEDS: FUROSEMIDE 40 MG INJ IV ×2 (08:38→22:11)
[2018-09-07] MEDS: carBAMAZepine CHEW 100 MG CHEW PO (09:42)
[2018-09-07] MEDS: GUAIFENESIN/DM 5ML CUP PO (15:15)
[2018-09-08] MEDS: carBAMAZepine CHEW 100 MG CHEW PO ×3 (00:20→21:19)
[2018-09-08 05:58] LABS: ADD MAN DIFF? NO
[2018-09-08 06:06] LABS: BASOPHILS % 0.4 % (0.0-2.0); EOSINOPHILS # 0.4 10^3/ul (0.0-0.5); EOSINOPHILS % 4.5 % (0.0-7.0); HEMATOCRIT 32.6 % (37.0-47.0); HEMOGLOBIN 10.3 g/dl (12.0-16.0); LYMPHOCYTES # 3.5 10^3/ul (0.8-2.9); LYMPHOCYTES % 40.7 % (15.0-51.0); MEAN CORPUSCULAR HEMOGLOBIN 27.4 pg (29.0-33.0); MEAN CORPUSCULAR HGB CONC 31.6 g/dl (32.0-37.0); MEAN CORPUSCULAR VOLUME 86.7 fl (82.0-101.0); MEAN PLATELET VOLUME 10.5 fl (7.4-10.4); MONOCYTE # 0.7 10^3/ul (0.3-0.9); MONOCYTES % 7.9 % (0.0-11.0); NEUTROPHIL # 3.9 10^3/ul (1.6-7.5); NEUTROPHILS % 46.1 % (39.0-77.0); PLATELET COUNT 225 10^3/UL (140-415); RED BLOOD COUNT 3.76 10^6/ul (4.20-5.40)
[2018-09-08 06:06] LABS: WHITE BLOOD COUNT 8.5 10^3/ul (4.8-10.8)
[2018-09-08] MEDS: CEFTRIAXONE 1 GM/50 ML (PMX) 50 ML IVPB (06:09)
[2018-09-08] MEDS: PANTOPRAZOLE (EC) 40 MG TAB PO (06:10)
[2018-09-08] MEDS: LEVOTHYROXINE 50 MCG TAB PO (06:10)
[2018-09-08 06:29] LABS: ANION GAP 9 (5-13); BLOOD UREA NITROGEN 28 mg/dl (7-20); CALCIUM 8.9 mg/dl (8.4-10.2); CARBON DIOXIDE 28 mmol/L (21-31); CHLORIDE 102 mmol/L (97-110); CREATININE 1.29 mg/dl (0.44-1.00); GLUCOSE 107 mg/dl (70-220); MAGNESIUM 2.1 mg/dl (1.7-2.5); POTASSIUM 3.7 mmol/L (3.5-5.1); SODIUM 139 mmol/L (135-144)
[2018-09-08] MEDS: AZITHROMYCIN 500MG/NS (PMX) 250 ML IVPB (07:02)
[2018-09-08] MEDS: PAROXETINE 20 MG TAB PO (08:30)
[2018-09-08] MEDS: FUROSEMIDE 40 MG INJ IV (08:30)
[2018-09-08] MEDS: APIXABAN 5 MG TABLET PO ×2 (08:30→21:19)
[2018-09-08] MEDS: GUAIFENESIN/DM 5ML CUP PO (21:29)
[2018-09-09] MEDS: LEVOTHYROXINE 50 MCG TAB PO (06:28)
[2018-09-09] MEDS: PANTOPRAZOLE (EC) 40 MG TAB PO (06:28)
[2018-09-09] MEDS: AZITHROMYCIN 250 MG TAB PO (09:54)
[2018-09-09] MEDS: FUROSEMIDE 40 MG INJ IV (09:54)
[2018-09-09] MEDS: carBAMAZepine CHEW 100 MG CHEW PO (09:55)
[2018-09-09] MEDS: PAROXETINE 20 MG TAB PO (10:00)
[2018-09-09] MEDS: APIXABAN 5 MG TABLET PO (10:00)
[2018-09-09 10:12] LABS: ANION GAP 11 (5-13); BLOOD UREA NITROGEN 29 mg/dl (7-20); CALCIUM 9.1 mg/dl (8.4-10.2); CARBON DIOXIDE 25 mmol/L (21-31); CHLORIDE 100 mmol/L (97-110); CREATININE 1.26 mg/dl (0.44-1.00); GLUCOSE 238 mg/dl (70-220); POTASSIUM 3.5 mmol/L (3.5-5.1); SODIUM 136 mmol/L (135-144)
== END 2018-09-09 14:00 | disposition home or self-care (01) | DRG 291 ==
LOC: E/R 04:31 → 6WM 17:22
PROVIDERS: Internal Medicine
DX: I11.0 Hypertensive heart disease with heart failure (principal); J18.9 Pneumonia, unspecified organism; N17.9 Acute kidney failure, unspecified; I50.43 Acute on chronic combined systolic (congestive) and diastolic (congestive) heart failure; J20.9 Acute bronchitis, unspecified; J06.9 Acute upper respiratory infection, unspecified; E03.9 Hypothyroidism, unspecified; E78.5 Hyperlipidemia, unspecified; F32.9 Major depressive disorder, single episode, unspecified; R73.03 Prediabetes; Z95.0 Presence of cardiac pacemaker; Z79.01 Long term (current) use of anticoagulants; Z79.1 Long term (current) use of non-steroidal anti-inflammatories (NSAID); Z79.891 Long term (current) use of opiate analgesic
CPT/HCPCS: 36415; 71045; 80048; 80053; 80061; 82550; 82553; 83036; 83605; 83735; 83880; 84100; 84484; 85025; 87040; 87400; 93005; 93306; 94664; 96374; 96375; 99285-25

== ENCOUNTER 2019-01-28 01:14 | Emergency (ER) | payer OTHER ==
[2019-01-28] MEDS: ONDANSETRON 4 MG INJ IV (02:06)
== END 2019-01-28 02:51 | disposition home or self-care (01) ==
LOC: E/R 01:14
DX: S09.90XA Unspecified injury of head, initial encounter (principal); I10 Essential (primary) hypertension; E03.9 Hypothyroidism, unspecified; R42 Dizziness and giddiness; W01.198A Fall on same level from slipping, tripping and stumbling with subsequent striking against other object, initial encounter; Y92.9 Unspecified place or not applicable; Z79.01 Long term (current) use of anticoagulants; Z95.0 Presence of cardiac pacemaker
CPT/HCPCS: 70450; 96374; 99285-25